=== PATIENT | male | born 1935 | race Caucasian/White ===

== ENCOUNTER 2022-09-22 13:38 | Outpatient (RCR) | payer OTHER, SELFPAY | END 2022-11-13 14:28 | disposition home or self-care (01) | LOC: HO.WCC 13:38 | PROVIDERS: PCP Internal Medicine; Visit Provider Physician Assistant | DX: T81.30XD Disruption of wound, unspecified, subsequent encounter (principal); S81.811D Laceration without foreign body, right lower leg, subsequent encounter; R60.9 Edema, unspecified; I87.2 Venous insufficiency (chronic) (peripheral); I10 Essential (primary) hypertension; Z87.891 Personal history of nicotine dependence | CPT/HCPCS: 11042; 15271; 99212; Q4101; Q4196 ==